=== PATIENT | male | born 1995 | race Hispanic/Latino ===

== ENCOUNTER 2020-11-08 18:15 | Inpatient (IN) | payer BC, OTHER ==
[~2020-11-08] VITALS: Ht 177.8 cm; Wt 65.8 kg
[2020-11-08] MEDS ORDERED: DEXTROSE 50%-WATER 50 ML DISP.SYRIN IV ONE ×4 (18:46→21:58)
[2020-11-08] MEDS ORDERED: DEXTROSE 10%-WATER 1,000 ML IV ONE (18:51)
[2020-11-08 19:08] LABS: BASOPHILS % (AUTO) 0.8 % (0.0-5.0); EOSINOPHILS % (AUTO) 3.3 % (0.0-8.0); HEMATOCRIT 32.1 % (42-54); LYMPHOCYTES % (AUTO) 37.7 % (21.0-51.0); MEAN CORPUSCULAR HEMOGLOBIN 30.5 pg (27.0-33.0); MEAN CORPUSCULAR HGB CONC 34.6 g/dL (32.0-36.0); MEAN CORPUSCULAR VOLUME 88.2 fL (79-99); MONOCYTES % (AUTO) 6.6 % (3.0-13.0); NEUTROPHILS % (AUTO) 51.3 % (40.0-77.0); PLATELET COUNT (AUTO) 326 K/uL (130-400); RED BLOOD CELL COUNT(AUTO) 3.64 MIL/uL (4.50-6.20); WHITE BLOOD COUNT (AUTO) 11.7 K/uL (4.8-10.8)
[2020-11-08 19:20] LABS: ALANINE AMINOTRANSFERASE 21 U/L (12-78); ALBUMIN 3.2 g/dL (3.5-5.0); ALCOHOL, BLOOD < 3 mg/dL (0-10); ASPARTATE AMINOTRANSFERASE 16 U/L (10-37); BILIRUBIN,TOTAL 0.1 mg/dL (0.2-1.0); CARBON DIOXIDE 32 mmol/L (21-32); CHLORIDE 100 mmol/L (101-111); CREATININE 1.2 mg/dL (0.5-1.5); GLOMERULAR FILTR. RATE CALC 77 mL/min (>60); GLUCOSE,RANDOM 387 mg/dL (70-105); SODIUM SERUM 139 mmol/L (136-145); TOTAL PROTEIN, SERUM 6.8 g/dL (6.0-8.3); UREA NITROGEN, BLOOD 13 mg/dL (7-18)
[2020-11-08 19:23] LABS: ACETAMINOPHEN < 1 mcg/mL (10-29)
[2020-11-08 19:25] LABS: POTASSIUM 2.3 mmol/L (3.5-5.1)
[2020-11-08 19:35] LABS: APPEARANCE,URINE Clear (CLEAR); BILIRUBIN,URINE Negative (NEGATIVE); COLOR,URINE Yellow (YELLOW); GLUCOSE, URINE (UA) >=1000 mg/dL (NEGATIVE); KETONES,URINE Negative (NEGATIVE); LEUKOCYTE ESTERASE ,URINE Negative (NEGATIVE); NITRATE,URINE Negative (NEGATIVE); OCCULT BLOOD,URINE Negative (NEGATIVE); PH,URINE 7.5 (5.0-8.0); PROTEIN,URINE POS 1+ mg/dL (NEGATIVE); UROBILINOGEN,URINE 0.2 mg/dL (0.2-1.0)
[2020-11-08] MEDS ORDERED: POTASSIUM CHLORIDE 20MEQ/100ML 100 ML IV ONE (19:39)
[2020-11-08 19:43] LABS: AMPHET/METH SCREEN,URINE NEGATIVE (NEGATIVE); BARBITURATE SCREEN, URINE NEGATIVE (NEGATIVE); BENZODIAZEPINES SCREEN,URINE NEGATIVE (NEGATIVE); CANNABINOID SCREEN,URINE POSITIVE (NEGATIVE); COCAINE SCREEN,URINE POSITIVE (NEGATIVE); OPIATE SCREEN,URINE NEGATIVE (NEGATIVE); PHENCYCLIDINE SCREEN,URINE NEGATIVE (NEGATIVE)
[2020-11-08 19:46] LABS: RBC,URINE 0-1 /HPF (0-1); WBC,URINE 0-1 /HPF (0-1)
[2020-11-08 19:47] LABS: BACTERIA,URINE None Seen /HPF (None Seen); MUCUS,URINE Few LPF (None Seen); SQUAMOUS EPITHELIAL CELL,UR 0-2 /HPF (0-2)
[2020-11-08] MEDS ORDERED: POTASSIUM CHLORIDE 10% ELIXIR 20 MEQ/15 ML UDCUP PO SCH (20:15)
[2020-11-08] MEDS ORDERED: KCL 20 MEQ ERTAB PO ONE ×2 (20:28→20:29)
[2020-11-08] MEDS ORDERED: DIPHENHYDRAMINE HCL 25 MG CAPSULE PO PRN (21:15)
[2020-11-08] MEDS ORDERED: ACETAMINOPHEN 325 MG TAB PO PRN ×2 (21:15)
[2020-11-08] MEDS ORDERED: DiphenhydrAMINE HCL 50 MG/ML VIAL IV PRN (21:15)
[2020-11-08] MEDS ORDERED: NITROGLYCERIN 0.4 MG SL TAB SL PRN (21:15)
[2020-11-08] MEDS ORDERED: ONDANSETRON 4MG INJ IV PRN (21:15)
[2020-11-08] MEDS ORDERED: GUAIFENESIN-DM 200/20 MG 10 ML PO PRN (21:15)
[2020-11-08] MEDS ORDERED: LACTULOSE 20 GM/30 ML UDCUP PO PRN (21:15)
[2020-11-08] MEDS ORDERED: MAG/ALUM/SIMETH 30 ML UDCUP PO PRN (21:15)
[2020-11-08] MEDS ORDERED: POTASSIUM CHLORIDE 20MEQ/100ML 100 ML IV PRN ×2 (23:45)
[2020-11-08] MEDS ORDERED: GLUCAGON 1MG KIT 1 MG ML IM PRN (23:45)
[2020-11-08] MEDS ORDERED: POTASSIUM CHLORIDE 10% ELIXIR 20 MEQ/15 ML UDCUP PO PRN (23:45)
[2020-11-08] MEDS ORDERED: DEXTROSE 50%-WATER 50 ML DISP.SYRIN IV PRN (23:45)
[2020-11-08] MEDS ORDERED: KCL 20 MEQ ERTAB PO PRN (23:45)
[2020-11-09] MEDS ORDERED: ACETAMINOPHEN WITH CODEINE 1 TAB TAB ONE (02:06)
[2020-11-09 02:27] LABS: POTASSIUM 3.5 mmol/L (3.5-5.1)
[2020-11-09] MEDS ORDERED: HYDROXYZINE 25 MG TABLET PO ONE (04:00)
[2020-11-09 06:55] LABS: BASOPHILS % (AUTO) 0.5 % (0.0-5.0); HEMATOCRIT 36.1 % (42-54); LYMPHOCYTES % (AUTO) 15.4 % (21.0-51.0); MEAN CORPUSCULAR HEMOGLOBIN 30.5 pg (27.0-33.0); MEAN CORPUSCULAR HGB CONC 34.6 g/dL (32.0-36.0); MONOCYTES % (AUTO) 10.5 % (3.0-13.0); NEUTROPHILS % (AUTO) 72.2 % (40.0-77.0); PLATELET COUNT (AUTO) 314 K/uL (130-400); WHITE BLOOD COUNT (AUTO) 17.4 K/uL (4.8-10.8)
[2020-11-09 07:04] LABS: CREATININE 1.1 mg/dL (0.5-1.5); POTASSIUM 4.1 mmol/L (3.5-5.1)
[2020-11-09 07:25] VITALS: BP 110/67
[2020-11-09] MEDS: INSULIN HUMULIN R 100 UNIT/ML 3ML SQ SCH ×4 (07:30→20:58)
[2020-11-09 07:53] LABS: HEMOGLOBIN A1C 11.7 % (4.0-6.0)
[2020-11-09] MEDS: FAMOTIDINE 20MG TAB PO SCH ×2 (09:00→20:58)
[2020-11-09] MEDS: ACETAMINOPHEN WITH CODEINE 1 TAB TAB PO PRN ×2 (10:28→16:18)
[2020-11-09] MEDS ORDERED: INSULIN HUMULIN R 100 UNIT/ML 3ML SQ SCH (11:30)
[2020-11-09 12:00] VITALS: BP 118/69
[2020-11-09 16:00] VITALS: BP 102/66
[2020-11-09 19:21] VITALS: BP 90/63
[2020-11-09 23:53] VITALS: BP 114/63
[2020-11-10 03:55] VITALS: BP 114/68
[2020-11-10 05:38] LABS: BASOPHILS % (AUTO) 0.9 % (0.0-5.0); HEMATOCRIT 39.6 % (42-54); LYMPHOCYTES % (AUTO) 25.6 % (21.0-51.0); MEAN CORPUSCULAR HEMOGLOBIN 29.5 pg (27.0-33.0); MEAN CORPUSCULAR HGB CONC 32.8 g/dL (32.0-36.0); MEAN CORPUSCULAR VOLUME 89.8 fL (79-99); MONOCYTES % (AUTO) 11.9 % (3.0-13.0); NEUTROPHILS % (AUTO) 57.1 % (40.0-77.0); PLATELET COUNT (AUTO) 297 K/uL (130-400); RED BLOOD CELL COUNT(AUTO) 4.41 MIL/uL (4.50-6.20); RED CELL DISTRIBUTION WIDTH 12.1 % (11.0-15.5); WHITE BLOOD COUNT (AUTO) 14.1 K/uL (4.8-10.8)
[2020-11-10 06:03] LABS: CREATININE 1.8 mg/dL (0.5-1.5); POTASSIUM 4.6 mmol/L (3.5-5.1)
[2020-11-10] MEDS: INSULIN HUMULIN R 100 UNIT/ML 3ML SQ SCH ×3 (06:21→21:11)
[2020-11-10] MEDS: CEFTRIAXONE 1G VIAL IVP SCH ×2 (06:21→18:16)
[2020-11-10 08:44] VITALS: BP 114/79
[2020-11-10] MEDS: FAMOTIDINE 20MG TAB PO SCH ×2 (09:15→21:08)
[2020-11-10] MEDS: ACETAMINOPHEN WITH CODEINE 1 TAB TAB PO PRN ×3 (09:15→18:18)
[2020-11-10 11:53] VITALS: BP 102/68
[2020-11-10 16:59] VITALS: BP 118/75
[2020-11-10] MEDS ORDERED: INSULIN GLARGINE 100 UNITS/ML 10 ML VIAL SQ SCH (17:00)
[2020-11-10 20:21] VITALS: BP 118/79
[2020-11-10] MEDS: PHENAZOPYRIDINE HCL 200 MG TABLET PO SCH (21:08)
[2020-11-10 23:21] VITALS: BP 114/69
[2020-11-11 03:49] VITALS: BP 134/88
[2020-11-11 05:24] LABS: BASOPHILS % (AUTO) 0.8 % (0.0-5.0); EOSINOPHILS % (AUTO) 6.2 % (0.0-8.0); LYMPHOCYTES % (AUTO) 23.9 % (21.0-51.0); MEAN CORPUSCULAR HEMOGLOBIN 30.3 pg (27.0-33.0); MEAN CORPUSCULAR HGB CONC 34.3 g/dL (32.0-36.0); MEAN CORPUSCULAR VOLUME 88.3 fL (79-99); MONOCYTES % (AUTO) 12.5 % (3.0-13.0); PLATELET COUNT (AUTO) 273 K/uL (130-400); RED BLOOD CELL COUNT(AUTO) 4.19 MIL/uL (4.50-6.20); RED CELL DISTRIBUTION WIDTH 11.9 % (11.0-15.5); WHITE BLOOD COUNT (AUTO) 14.3 K/uL (4.8-10.8)
[2020-11-11 05:44] LABS: CREATININE 1.6 mg/dL (0.5-1.5); POTASSIUM 4.1 mmol/L (3.5-5.1)
[2020-11-11] MEDS: CEFTRIAXONE 1G VIAL IVP SCH (06:41)
[2020-11-11] MEDS: INSULIN HUMULIN R 100 UNIT/ML 3ML SQ SCH (06:45)
[2020-11-11] MEDS: ACETAMINOPHEN WITH CODEINE 1 TAB TAB PO PRN (06:46)
[2020-11-11] MEDS ORDERED: INSULIN HUMULIN R 100 UNIT/ML 3ML SQ SCH ×2 (07:00→11:30)
[2020-11-11] MEDS ORDERED: CEPH500B PO (08:52)
[2020-11-11] MEDS: FAMOTIDINE 20MG TAB PO SCH (09:01)
[2020-11-11] MEDS: PHENAZOPYRIDINE HCL 200 MG TABLET PO SCH (09:01)
[2020-11-11] MEDS ORDERED: INSULIN GLARGINE 100 UNITS/ML 10 ML VIAL SQ SCH (11:30)
== END 2020-11-11 12:09 | disposition home or self-care (01) | DRG 639 ==
LOC: EDBD 18:15 → EDH 18:15 → EDHIP 18:16 → 4CH 11-09 09:56
PROVIDERS: ADMIT Family Medicine; ATTEND Family Medicine
DX: E10.649 Type 1 diabetes mellitus with hypoglycemia without coma (principal); E87.6 Hypokalemia; R09.02 Hypoxemia; N32.89 Other specified disorders of bladder; I10 Essential (primary) hypertension; E10.42 Type 1 diabetes mellitus with diabetic polyneuropathy; Z20.822 Contact with and (suspected) exposure to COVID-19; F19.10 Other psychoactive substance abuse, uncomplicated; F60.9 Personality disorder, unspecified; F91.3 Oppositional defiant disorder; Z79.4 Long term (current) use of insulin; Y92.89 Other specified places as the place of occurrence of the external cause
CPT/HCPCS: 36415; 76604; 80048; 80053; 80305; 81001; 82948; 83036; 83735; 84132; 85025; 87088; 87426; 87804; 93005; 99291; G0378; G0481; J0696; J1815; J3480; J3490; J7070; Q0163; U0003

== ENCOUNTER 2023-07-08 08:57 | Day surgery (SDC) | payer OTHER, MEDICARE ==
[2023-07-04 10:25] LABS: BASOPHILS # (AUTO) 0.12 K/uL (0.00-0.20); BASOPHILS % (AUTO) 0.7 % (0.0-5.0); EOSINOPHILS # (AUTO) 0.23 K/uL (0.00-0.70); EOSINOPHILS % (AUTO) 1.4 % (0.0-8.0); HEMATOCRIT 21.6 % (42-54); IMMATURE GRANULOCYTE ABSOLUTE 0.09 K/uL (0-1); LYMPHOCYTES # (AUTO) 0.9 K/uL (1.0-4.8); LYMPHOCYTES % (AUTO) 5.4 % (21.0-51.0); MEAN CORPUSCULAR HEMOGLOBIN 30.9 pg (27.0-33.0); MEAN CORPUSCULAR HGB CONC 32.9 g/dL (32.0-36.0); MEAN CORPUSCULAR VOLUME 93.9 fL (79-99); MONOCYTES # (AUTO) 1.2 K/uL (0.1-1.0); MONOCYTES % (AUTO) 7.4 % (3.0-13.0); NEUTROPHILS # (AUTO) 13.5 K/uL (1.8-7.7); NEUTROPHILS % (AUTO) 84.5 % (40.0-77.0); PLATELET COUNT (AUTO) 375 K/uL (130-400); RED CELL DISTRIBUTION WIDTH 16.7 % (11.0-15.5)
[2023-07-04 10:38] VITALS: BP 175/86; PULSE 105; RESP 17
[2023-07-04 10:47] LABS: INR 0.94 (0.85-1.15)
[2023-07-04 10:48] LABS: PARTIAL THROMBOPLASTIN TIME 32.6 SEC (26.3-35.5)
[2023-07-04 10:57] LABS: ALBUMIN 3.3 g/dL (3.5-5.0); BILIRUBIN,TOTAL 0.5 mg/dL (0.2-1.0); POTASSIUM 5.7 mmol/L (3.5-5.1); TOTAL PROTEIN, SERUM 7.3 g/dL (6.0-8.3)
[2023-07-04 11:25] LABS: CREATININE 10.4 mg/dL (0.5-1.5)
[~2023-07-08] VITALS: Ht 177.8 cm; Wt 68.0 kg
[2023-07-08] VITALS (18 sets, daily range): BP systolic 104–146; BP diastolic 58–89; PULSE 71–82; RESP 11–18
[~2023-07-08 08:57] MED LIST: AMLO-258 PO; CARV25TA PO; CEPH500C2 PO; HYDR-4154 PO; INSU100C6 SQ; LOSA100T59 PO; SEVE800T27 PO
[2023-07-08] MEDS ORDERED: 0.9% NACL 500ML IV.SOLN 500 ML IV ONE (10:10)
[2023-07-08 10:20] LABS: CREATININE 7.5 mg/dL (0.5-1.5)
[2023-07-08] MEDS: CEFAZOLIN SODIUM 2 GM VIAL ONE ×2 (11:40→12:42)
[2023-07-08] MEDS ORDERED: LIDOCAINE HCL 1% 10 ML VIAL ONE (12:17)
[2023-07-08] MEDS ORDERED: BUPIVACAINE/PF 0.25% 10ML VIAL IJ ONE (12:18)
[2023-07-08] MEDS ORDERED: LIDOCAINE PF 100MG/5ML (2%) SYRINGE 5ML ONE (12:32)
[2023-07-08] MEDS ORDERED: FENTANYL CITRATE PF 50 MCG/1 ML 2ML VIAL ONE (12:33)
[2023-07-08] MEDS ORDERED: PROPOFOL 10 MG/ML 20ML VIAL IV ONE (12:33)
[2023-07-08] MEDS ORDERED: MIDAZOLAM HCL 1 MG/ML 2ML VIAL ONE (12:34)
[2023-07-08] MEDS ORDERED: KETAMINE 50MG/ML SYRINGE 50 MG/ML DISP.SYRIN ONE (12:43)
[2023-07-08] MEDS ORDERED: BUPIVACAINE/EPI/PF 0.25% 10ML VIAL IJ ONE (12:59)
[2023-07-08] MEDS ORDERED: HEPARIN 10,000 UNIT/10ML (1,000 UNIT/ML) VIAL ONE (13:39)
[2023-07-08] MEDS ORDERED: EPHEDRINE SULFATE 50 MG/ML AMPULE ONE (13:40)
== END 2023-07-08 16:30 | disposition home or self-care (01) ==
LOC: DAH 08:57
PROVIDERS: ATTEND Student in an Organized Health Care Education/Training Program
DX: E11.22 Type 2 diabetes mellitus with diabetic chronic kidney disease (principal); I12.0 Hypertensive chronic kidney disease with stage 5 chronic kidney disease or end stage renal disease; N18.6 End stage renal disease; E66.9 Obesity, unspecified; Z79.01 Long term (current) use of anticoagulants; Z79.899 Other long term (current) drug therapy; Z88.8 Allergy status to other drugs, medicaments and biological substances; Z82.49 Family history of ischemic heart disease and other diseases of the circulatory system; Z83.3 Family history of diabetes mellitus; Z79.4 Long term (current) use of insulin; Z68.22 Body mass index [BMI] 22.0-22.9, adult; Z99.2 Dependence on renal dialysis
CPT/HCPCS: 80053; 85025; 85610; 85730; 86850 ×2; 86900 ×2; 86901 ×2; 36415 ×2; 36821; 37607; 80048; 82948 ×3; 71045; A6260; A4663; J7040; J3010; J2001; J3490 ×4; J1644 ×2; J2250; J2704; J0665; J0690; G0168; A4649 ×2; C1713 ×2; A4215; A4223; A4222; A4221